=== PATIENT | male | born 1975 | race Caucasian/White ===

== ENCOUNTER 2018-08-31 07:32 | Day surgery (SDC) | payer BC ==
[~2018-08-31 07:32] MED LIST: PROPOFOL 200 MG INJ
[2018-08-31] MEDS ORDERED: PROPOFOL 60 ML (10:28)
[2018-08-31] MEDS ORDERED: LIDOCAINE 100 MG SYRINGE (10:28)
== END 2018-08-31 11:09 | disposition home or self-care (01) ==
LOC: GIL 07:32
DX: K29.50 Unspecified chronic gastritis without bleeding (principal); K29.80 Duodenitis without bleeding; I10 Essential (primary) hypertension
CPT/HCPCS: 43239; 88305; 88312